=== PATIENT | female | born 1950 | race Two or more races ===

== ENCOUNTER 2023-08-16 10:00 | Inpatient (IN) | payer OTHER ==
[2023-08-16] MEDS ORDERED: AVALIDE 300-121 EACH PO (14:21)
[2023-08-16] MEDS ORDERED: METROPOLOR (14:22)
[2023-08-16] MEDS ORDERED: PRAZOSIN HCL1 GM MC (14:22)
[2023-08-16] MEDS ORDERED: SINGULAIR10 MG (14:22)
[2023-08-16] MEDS ORDERED: XYZAL (14:23)
[2023-08-16] MEDS ORDERED: NEXIUM40 M1 (14:23)
[2023-08-16] MEDS ORDERED: AMBIEN10 MG PO (14:23)
[2023-08-16] MEDS ORDERED: NEURONTIN300 MG PO (14:23)
[2023-08-16] MEDS ORDERED: [UNRECOGNIZED DRUG - OTHER] (14:24)
[2023-08-16] MEDS ORDERED: RESTASIS MULTI5.5 ML (14:24)
[2023-08-16] MEDS ORDERED: REFRESH (14:24)
[2023-08-27] MEDS ORDERED: CEFOXITIN SODIUM 2,000 MG VIAL IV ONE ×2 (07:38→08:00)
[2023-08-27] MEDS ORDERED: TRANEXAMIC ACID 100MG/1ML (1000MG) AMPUL IV ONE ×3 (07:38→08:00)
[2023-08-27] MEDS ORDERED: LIDOCAINE HCL/EPINEPHRINE 10MG/ML 1% 50ML IJ ONE (08:00)
[2023-08-27] MEDS ORDERED: BUPIVACAINE HCL 250MG/50ML VIAL IJ ONE (08:00)
[2023-08-27] MEDS ORDERED: PRAZOSIN HCL1 MG (08:06)
[2023-08-27] MEDS ORDERED: METOPROLOL SUCC50 MG (08:06)
[2023-08-27] MEDS ORDERED: REFRESH OPTIVE1 EAC2 (08:07)
[2023-08-27] MEDS ORDERED: XYZAL5 MG PO (08:07)
[2023-08-27] MEDS ORDERED: PATADAY5 ML (08:09)
[2023-08-27] MEDS ORDERED: MORPHINE SULFATE 4 MG/ML VIAL IV ONE (08:30)
[2023-08-27] MEDS ORDERED: ISOPROPYL ALCOHOL 30 ML OUNCE TOP ONE (09:00)
[2023-08-27] MEDS ORDERED: GENTAMICIN SULFATE 40 MG/ML VIAL IV SCH (10:43)
[2023-08-27] MEDS ORDERED: ONDANSETRON HCL 2 MG/ML VIAL IV PRN (10:45)
[2023-08-27] MEDS ORDERED: MORPHINE SULFATE 2 MG/ML CARTRIDGE IV ONE (10:45)
[2023-08-27] MEDS ORDERED: MORPHINE SULFATE 4 MG/ML CARTRIDGE IV PRN (10:45)
[2023-08-27] MEDS ORDERED: SODIUM CHLORIDE 0.45 % 1,000 ML IV SCH (10:45)
[2023-08-27] MEDS ORDERED: CEFAZOLIN SODIUM 1,000 MG VIAL IV SCH (12:00)
[2023-08-27 12:25] LABS: HEMATOCRIT 36.6 % (36.0-45.00); HEMOGLOBIN 12.3 g/dL (12.0-15.00); RED BLOOD COUNT 4.1 M/uL (4.00-6.00)
[2023-08-27] MEDS ORDERED: GENTAMICIN SULFATE 40 MG/ML VIAL ONE (14:23)
[2023-08-27] MEDS ORDERED: CEFAZOLIN SODIUM 1,000 MG VIAL ONE (14:23)
[2023-08-28 06:18] LABS: HEMATOCRIT 32.5 % (36.0-45.00); MEAN CELL VOLUME 88.5 fL (80.00-100.00); MEAN CORPUSCULAR HGB CONC 33.9 g/dl (32.0-36.0); PLATELET COUNT 172 K/uL (150-450); RED BLOOD COUNT 3.67 M/uL (4.00-6.00); RED CELL DISTRIBUTION WIDTH 12.7 % (11.5-14.5)
[2023-08-28] MEDS ORDERED: OxyCODONE HCL/APAP UD (PERCOCET) PO PRN (08:15)
[2023-08-28] MEDS ORDERED: RIVAROXABAN 10 MG TAB PO SCH (09:00)
[2023-08-28] MEDS ORDERED: MONTELUKAST SODIUM 10 MG TABLET PO SCH ×2 (09:00→21:00)
[2023-08-28] MEDS ORDERED: IRON FUM,PS/FOLIC/BCOMP,C NO.9 1 CAP CAPSULE PO SCH (09:00)
[2023-08-28] MEDS ORDERED: BACITRACIN 28.35 GM OINT.TUBE TOP SCH (09:00)
[2023-08-28] MEDS ORDERED: IRBESARTAN 300 MG TABLET PO SCH (09:00)
[2023-08-28] MEDS ORDERED: SENNA/DOCUSATE SODIUM 1 TAB TABLET PO SCH (09:00)
[2023-08-28] MEDS ORDERED: METOPROLOL TARTRATE 50 MG TABLET PO SCH ×2 (09:00→21:00)
[2023-08-28] MEDS ORDERED: OxyCODONE HCL ER 10MG TAB (OxyCONTIN) PO SCH (09:00)
[2023-08-28] MEDS ORDERED: ENALAPRILAT DIHYDRATE 1.25 MG/ML VIAL IV PRN (12:15)
[2023-08-29 05:35] LABS: HEMATOCRIT 30.9 % (36.0-45.00); HEMOGLOBIN 10.5 g/dL (12.0-15.00); MEAN CORPUSCULAR HEMOGLOBIN 30.3 pg (27.00-32.0); MEAN CORPUSCULAR HGB CONC 34.1 g/dl (32.0-36.0); PLATELET COUNT 156 K/uL (150-450); RED BLOOD COUNT 3.47 M/uL (4.00-6.00); RED CELL DISTRIBUTION WIDTH 13.1 % (11.5-14.5)
[2023-08-29] MEDS ORDERED: XARELTO10 MG PO (06:42)
[2023-08-29] MEDS ORDERED: BACTRIM DS TAB1 EACH PO (06:42)
[2023-08-29] MEDS ORDERED: DOLOGESIC 500-1 EACH PO (06:42)
[2023-08-29] MEDS ORDERED: INTEGRA PLUS C1 EACH PO (06:42)
== END 2023-08-29 18:10 | DRG 470 ==
LOC: O/R 08-27 05:09 → SURG 08-27 05:09 → SURH 08-27 10:00 → SURG 08-27 11:27
PROVIDERS: ADMIT Orthopaedic Surgery Sports Medicine; ATTEND Orthopaedic Surgery Sports Medicine
PROC: 0SRC0J9 Replacement of Right Knee Joint with Synthetic Substitute, Cemented, Open Approach (ICD-10-PCS; principal; 2023-08-27 10:30)
DX: M17.11 Unilateral primary osteoarthritis, right knee (principal); I10 Essential (primary) hypertension